=== PATIENT | male | born 1995 | race Caucasian/White ===

== ENCOUNTER 2023-07-29 01:40 | Emergency (ER) | payer OTHER ==
[~2023-07-29] VITALS: Ht 182.9 cm; Wt 81.7 kg
[~2023-07-29 01:40] MED LIST: Cleocin HCl300 MG PO; Penicillin V P500 MG PO
[2023-07-29 02:07] VITALS: BP 136/80
[2023-07-29] MEDS ORDERED: AMOCLA875 PO (05:15)
== END 2023-07-29 05:36 | disposition home or self-care (01) ==
LOC: ER 01:40
DX: K04.7 Periapical abscess without sinus (principal)
CPT/HCPCS: 99283; A9270